=== PATIENT | male | born 1945 | race Caucasian/White ===

== ENCOUNTER 2017-07-19 03:58 | Outpatient (CLI) | payer MEDICARE ==
[~2017-07-19 03:58] MED LIST: METH4TAB3 PO
== END 2017-07-19 23:59 | disposition home or self-care (01) ==
LOC: DIABETIC 03:58
PROVIDERS: ATTEND Specialist
DX: E11.65 Type 2 diabetes mellitus with hyperglycemia (principal); I12.9 Hypertensive chronic kidney disease with stage 1 through stage 4 chronic kidney disease, or unspecified chronic kidney disease; F17.200 Nicotine dependence, unspecified, uncomplicated; Z95.5 Presence of coronary angioplasty implant and graft
CPT/HCPCS: G0108

== ENCOUNTER 2017-11-02 01:26 | Outpatient (CLI) | payer MEDICARE | END 2017-11-02 23:59 | disposition home or self-care (01) | LOC: DIABETIC 01:26 | PROVIDERS: ATTEND Specialist | DX: E11.65 Type 2 diabetes mellitus with hyperglycemia (principal); I10 Essential (primary) hypertension; Z87.891 Personal history of nicotine dependence | CPT/HCPCS: G0108 ==

== ENCOUNTER 2018-02-13 01:57 | Outpatient (CLI) | payer MEDICARE | END 2018-02-13 23:59 | disposition home or self-care (01) | LOC: DIABETIC 01:57 | PROVIDERS: ATTEND Specialist | DX: E11.9 Type 2 diabetes mellitus without complications (principal) | CPT/HCPCS: G0108 ==

== ENCOUNTER 2018-07-17 04:19 | Outpatient (CLI) | payer MEDICARE | END 2018-07-17 23:59 | disposition home or self-care (01) | LOC: DIABETIC 04:19 | PROVIDERS: ATTEND Specialist | DX: E11.65 Type 2 diabetes mellitus with hyperglycemia (principal); I10 Essential (primary) hypertension; I25.2 Old myocardial infarction; Z79.82 Long term (current) use of aspirin; Z79.84 Long term (current) use of oral hypoglycemic drugs; Z87.891 Personal history of nicotine dependence | CPT/HCPCS: G0108 ==

== ENCOUNTER 2018-10-16 02:27 | Outpatient (CLI) | payer MEDICARE | END 2018-10-16 23:59 | disposition home or self-care (01) | LOC: DIABETIC 02:27 | PROVIDERS: ATTEND Specialist | DX: E11.65 Type 2 diabetes mellitus with hyperglycemia (principal); I10 Essential (primary) hypertension; Z79.82 Long term (current) use of aspirin; Z79.84 Long term (current) use of oral hypoglycemic drugs; Z79.4 Long term (current) use of insulin; Z87.891 Personal history of nicotine dependence | CPT/HCPCS: G0108 ==

== ENCOUNTER 2019-01-15 04:33 | Outpatient (CLI) | payer MEDICARE | END 2019-01-15 23:59 | disposition home or self-care (01) | LOC: DIABETIC 04:33 | PROVIDERS: ATTEND Specialist | DX: E11.65 Type 2 diabetes mellitus with hyperglycemia (principal); I10 Essential (primary) hypertension; E11.9 Type 2 diabetes mellitus without complications; Z79.4 Long term (current) use of insulin; Z79.84 Long term (current) use of oral hypoglycemic drugs; Z79.899 Other long term (current) drug therapy | CPT/HCPCS: G0108 ==

== ENCOUNTER 2019-04-10 03:23 | Outpatient (CLI) | payer MEDICARE | END 2019-04-10 23:59 | disposition home or self-care (01) | LOC: DIABETIC 03:23 | PROVIDERS: ATTEND Specialist | DX: E11.65 Type 2 diabetes mellitus with hyperglycemia (principal); Z71.3 Dietary counseling and surveillance | CPT/HCPCS: G0108 ==

== ENCOUNTER 2019-07-31 02:11 | Outpatient (CLI) | payer MEDICARE | END 2019-07-31 23:59 | disposition home or self-care (01) | LOC: DIABETIC 02:11 | PROVIDERS: ATTEND Specialist | DX: E11.65 Type 2 diabetes mellitus with hyperglycemia (principal); Z79.84 Long term (current) use of oral hypoglycemic drugs | CPT/HCPCS: G0108 ==